=== PATIENT | female | born 1990 | race Hispanic/Latino ===

== ENCOUNTER 2018-03-24 21:15 | Emergency (ER) | payer MEDICAID, OTHER ==
[2018-03-24] MEDS ORDERED: ZOFRAN ODT PO ONE (21:31)
[2018-03-24] MEDS ORDERED: ZOFRAN ODT ONE (21:32)
--- NOTE | 2018-03-24 23:26 | Emergency Department Report ---
ED Abdominal Pain HPI - General Chief Complaint: Abdominal Pain Stated Complaint: CONSTIPATION Time Seen by Provider: 03/24/18 22:55 Source: patient Mode of arrival: Ambulatory Limitations: No Limitations - History of Present Illness MD Complaint: abdominal pain, other (constipation) Onset/Timin -: days(s) Location: diffuse Radiation: none Migration to: no migration Severity scale (0 -10): 2 (2/10) Quality: cramping, fullness Consistency: intermittent Improves With: nothing Worsens With: nothing Context: other (constipation) Associated Symptoms: nausea, constipation, dysuria. denies: vomiting, diarrhea, fever, chills, hematemesis, hematochezia, melena, hematuria, anorexia, syncope Treatments Prior to Arrival: other ([id number] medication for constipation without any relief) - Related Data LMP Date: 03/19/18 Home Medications Medication Instructions Recorded Confirmed Last Taken Motrin 600 MG tab 600 mg PO TID 01/18/15 09/12/15 1 Week Ago ~08/23/15 Ferrous Sulfate 2 tab PO QDAY 08/16/15 09/12/15 1 Week Ago ~09/05/15 Previous Rx's Medication Instructions Recorded Last Taken Type Pnv with Ca,No.72/Iron/FA 1 each PO QDAY #30 tablet 01/18/15 1 Day Ago Rx [ Plus Multivitamin Tab] ~08/29/15 Labetalol [Normodyne TAB] 100 mg PO BID #60 tablet 09/07/15 2 Days Ago Rx ~09/10/15 Metoprolol [Lopressor TAB] 25 mg PO Q8HR #90 tablet 09/13/15 Unknown Rx Bisacodyl [Dulcolax] 10 mg PO ONCE 1 Days #2 tab 03/25/18 Unknown Rx Magnesium Citrate [Citrate of 300 ml PO ONCE 1 Days #1 bottle 03/25/18 Unknown Rx Magnesia] Ondansetron [Zofran ODT TAB] 8 mg PO Q8HR PRN #12 tab.rapdis 03/25/18 Unknown Rx Sulfamethoxazole/Trimethoprim 1 each PO BID 7 Days #14 tablet 03/25/18 Unknown Rx [Bactrim DS TAB] Allergies Allergy/AdvReac Type Severity Reaction Status Date / Time amoxicillin [Amoxicillin] Allergy Itching Verified 01/18/15 01:11 metoclopramide HCl Allergy Itching Verified 01/18/15 01:11 [From Reglan] Penicillins Allergy Itching Verified 01/18/15 01:11 promethazine HCl Allergy Itching Verified 01/18/15 01:11 [From Phenergan] ED Review of Systems ROS: Stated complaint: CONSTIPATION Other details as noted in HPI Constitutional: denies: chills, fever ENT: denies: throat pain Respiratory: denies: cough, shortness of breath, wheezing Cardiovascular: denies: chest pain, palpitations, edema, syncope Gastrointestinal: nausea, constipation. denies: abdominal pain, vomiting, diarrhea, hematemesis, hematochezia Genitourinary: dysuria. denies: frequency, hematuria, discharge Musculoskeletal: denies: back pain, joint swelling, arthralgia, myalgia Skin: denies: rash Neurological: denies: headache, abnormal gait, vertigo ED Past Medical Hx - Past Medical History Previous Medical History?: Yes (history of) Hx Hypertension: Yes Hx Congestive Heart Failure: No Hx Diabetes: No Hx Deep Vein Thrombosis: No Hx Renal Disease: No Hx Sickle Cell Disease: No Hx Seizures: No Hx Asthma: Yes (occas inhaler use) Hx COPD: No Hx HIV: No - Surgical History Past Surgical History?: No - Family History Family history: hypertension - Social History Smoking Status: Never Smoker Substance Use Type: None - Medications Home Medications: Home Medications Medication Instructions Recorded Confirmed Last Taken Type Motrin 600 MG tab 600 mg PO TID 01/18/15 09/12/15 1 Week Ago History ~08/23/15 Pnv with Ca,No.72/Iron/FA 1 each PO QDAY #30 tablet 01/18/15 09/12/15 1 Day Ago Rx [ Plus Multivitamin Tab] ~08/29/15 Ferrous Sulfate 2 tab PO QDAY 08/16/15 09/12/15 1 Week Ago History ~09/05/15 Labetalol [Normodyne TAB] 100 mg PO BID #60 tablet 09/07/15 09/12/15 2 Days Ago Rx ~09/10/15 Metoprolol [Lopressor TAB] 25 mg PO Q8HR #90 tablet 09/13/15 Unknown Rx Bisacodyl [Dulcolax] 10 mg PO ONCE 1 Days #2 tab 03/25/18 Unknown Rx Magnesium Citrate [Citrate of 300 ml PO ONCE 1 Days #1 bottle 03/25/18 Unknown Rx Magnesia] Ondansetron [Zofran ODT TAB] 8 mg PO Q8HR PRN #12 tab.rapdis 03/25/18 Unknown Rx Sulfamethoxazole/Trimethoprim 1 each PO BID 7 Days #14 tablet 03/25/18 Unknown Rx [Bactrim DS TAB] ED Physical Exam - General Limitations: No Limitations (-year-old getting better. No deformity history blood with) General appearance: alert, in no apparent distress - Head Head exam: Present: atraumatic, normocephalic, normal inspection - Eye Eye exam: Present: normal appearance, PERRL, EOMI Pupils: Present: normal accommodation - ENT ENT exam: Present: normal exam, normal orophraynx, mucous membranes moist, TM's normal bilaterally, normal external ear exam - Neck Neck exam: Present: normal inspection, full ROM. Absent: tenderness, lymphadenopathy - Respiratory Respiratory exam: Present: normal lung sounds bilaterally. Absent: respiratory distress, chest wall tenderness - Cardiovascular Cardiovascular Exam: Present: regular rate, normal rhythm, normal heart sounds. Absent: systolic murmur - GI/Abdominal GI/Abdominal exam: Present: soft, normal bowel sounds. Absent: distended, tenderness, guarding, rebound, rigid, organomegaly, mass (O:) - Extremities Exam Extremities exam: Present: normal inspection, full ROM, normal capillary refill, other. Absent: tenderness, pedal edema, joint swelling, calf tenderness - Back Exam Back exam: Present: normal inspection, full ROM, other. Absent: tenderness, CVA tenderness (R), CVA tenderness (L) - Neurological Exam Neurological exam: Present: alert, oriented X3, normal gait - Psychiatric Psychiatric exam: Present: normal affect, normal mood - Skin Skin exam: Present: warm, dry, intact, normal color. Absent: rash ED Course Vital Signs 03/24/18 03/24/18 03/25/18 21:21 21:25 01:14 Temperature 99.3 F 99.3 F 97.5 F L Pulse Rate 94 H 94 H 76 Respiratory 18 18 16 Rate Blood Pressure 119/83 119/83 Blood Pressure 126/86 [Left] O2 Sat by Pulse 95 95 98 Oximetry - Reevaluation(s) Reevaluation #1: 03/25/18 00:54 Patient received zofran 4 mg ODT with relief of nausea ED Medical Decision Making - Lab Data Lab Results 03/24/18 03/24/18 Range/Units Unknown Unknown Urine Color Yolanda (Yellow) Urine Turbidity Slightly-cloudy (Clear) Urine pH 5.0 (5.0-7.0) Ur Specific Printer 1.028 (1.003-1.030) Urine Protein 30 mg/dl (Negative) mg/dL Urine Glucose (UA) Neg (Negative) mg/dL Urine Ketones Tr (Negative) mg/dL Urine Blood Neg (Negative) Urine Nitrite Neg (Negative) Urine Bilirubin Neg (Negative) Urine Urobilinogen 2.0 (<2.0) mg/dL Ur Leukocyte Esterase Mod (Negative) Urine WBC (Auto) 6.0 (0.0-6.0) /HPF Urine RBC (Auto) 4.0 (0.0-6.0) /HPF U Epithel Cells (Auto) 12.0 (0-13.0) /HPF Urine Bacteria (Auto) 1+ (Negative) /HPF Urine Mucus 3+ /HPF Urine HCG, Qual Negative (Negative) Urine CX sent - Radiology Data Radiology results: report reviewed X-ray two-view abdomen dictated by radiologist and report reviewed by myself. This shows moderate stool in the rectosigmoid colon with nonobstructive bowel gas pattern. I am unable to populate radiology result to this area due to malfunction of radiology system. Please see report section for details - Medical Decision Making This is a 27-year-old female here report that she is constipated although she had a bowel movement yesterday. She says she felt like she is needs to go some more. X-ray of the abdomen was done and showed moderate stool and colon. Patient also had urinalysis which is negative for and positive for urinary tract infection and urine cultures sent. I discussed diagnosis, x-ray results and laboratory results the patient's and she voiced understanding. Patient discharged home in stable condition with prescription for Bactrim DS, Dulcolax tablet and magnesium citrate liquid. I discussed with her she is to follow-up with her primary care physician and if her condition worsens to return to the emergency room. Her vital signs are stable and she is febrile and in no acute distress. - Differential Diagnosis bowel obstruction, UTI, constipation Critical care attestation.: If time is entered above; I have spent that time in minutes in the direct care of this critically ill patient, excluding procedure time. ED Disposition Clinical Impression: Dysuria Constipation Qualifiers: Constipation type: other constipation type Qualified Code(s): K59.09 - Other constipation UTI (urinary tract infection) Qualifiers: Urinary tract infection type: acute cystitis Hematuria presence: without hematuria Qualified Code(s): N30.00 - Acute cystitis without hematuria Disposition: TO HOME OR SELFCARE Is pt being admited?: No Does the pt Need Aspirin: No Condition: Stable Instructions: Constipation (ED), Urinary Tract Infection in Women (ED), High Fiber Diet (ED), Dysuria (ED) Additional Instructions: increase fiber in diet Take meds as prescribed see discharge instructions on constipation and UTI increase fluid intake to 2-3 litre of water daily if symptoms worsens follow up in ed otherwise go to PCP and gastroenterology for chronic constipation Prescriptions: Bisacodyl [Dulcolax] 10 mg PO ONCE 1 Days #2 tab Magnesium Citrate [Citrate of Magnesia] 300 ml PO ONCE 1 Days #1 bottle Ondansetron [Zofran ODT TAB] 8 mg PO Q8HR PRN #12 tab.rapdis PRN Reason: nausea/vomiting Sulfamethoxazole/Trimethoprim [Bactrim DS TAB] 1 each PO BID 7 Days #14 tablet Referrals: NELLY STROUD MD [Primary Care Provider] - 2-3 Days [facility] [Outside] - 2-3 Days [facility] [Provider Group] - 2-3 Days Forms: Work/School Release Form(ED)
--- NOTE | 2018-03-24 23:26 | Emergency Department Report ---
ED Allergic Reaction HPI - General Chief complaint: Abdominal Pain Stated complaint: CONSTIPATION Time Seen by Provider: 03/24/18 22:55 Source: patient Mode of arrival: Ambulatory Limitations: No Limitations - Related Data Home Medications Medication Instructions Recorded Confirmed Last Taken Motrin 600 MG tab 600 mg PO TID 01/18/15 09/12/15 1 Week Ago ~08/23/15 Ferrous Sulfate 2 tab PO QDAY 08/16/15 09/12/15 1 Week Ago ~09/05/15 Previous Rx's Medication Instructions Recorded Last Taken Type Pnv with Ca,No.72/Iron/FA 1 each PO QDAY #30 tablet 01/18/15 1 Day Ago Rx [ Plus Multivitamin Tab] ~08/29/15 Labetalol [Normodyne TAB] 100 mg PO BID #60 tablet 09/07/15 2 Days Ago Rx ~09/10/15 Metoprolol [Lopressor TAB] 25 mg PO Q8HR #90 tablet 09/13/15 Unknown Rx Allergies Allergy/AdvReac Type Severity Reaction Status Date / Time amoxicillin [Amoxicillin] Allergy Itching Verified 01/18/15 01:11 metoclopramide HCl Allergy Itching Verified 01/18/15 01:11 [From Reglan] Penicillins Allergy Itching Verified 01/18/15 01:11 promethazine HCl Allergy Itching Verified 01/18/15 01:11 [From Phenergan] ED Review of Systems ROS: Stated complaint: CONSTIPATION Other details as noted in HPI ED Past Medical Hx - Past Medical History Previous Medical History?: Yes Hx Hypertension: Yes Hx Congestive Heart Failure: No Hx Diabetes: No Hx Deep Vein Thrombosis: No Hx Renal Disease: No Hx Sickle Cell Disease: No Hx Seizures: No Hx Asthma: Yes (occas inhaler use) Hx COPD: No Hx HIV: No - Surgical History Past Surgical History?: No - Social History Smoking Status: Never Smoker - Medications Home Medications: Home Medications Medication Instructions Recorded Confirmed Last Taken Type Motrin 600 MG tab 600 mg PO TID 01/18/15 09/12/15 1 Week Ago History ~08/23/15 Pnv with Ca,No.72/Iron/FA 1 each PO QDAY #30 tablet 01/18/15 09/12/15 1 Day Ago Rx [ Plus Multivitamin Tab] ~08/29/15 Ferrous Sulfate 2 tab PO QDAY 08/16/15 09/12/15 1 Week Ago History ~09/05/15 Labetalol [Normodyne TAB] 100 mg PO BID #60 tablet 09/07/15 09/12/15 2 Days Ago Rx ~09/10/15 Metoprolol [Lopressor TAB] 25 mg PO Q8HR #90 tablet 09/13/15 Unknown Rx ED Physical Exam - General Limitations: No Limitations ED Course Vital Signs 03/24/18 03/24/18 21:21 21:25 Temperature 99.3 F 99.3 F Pulse Rate 94 H 94 H Respiratory 18 18 Rate Blood Pressure 119/83 119/83 O2 Sat by Pulse 95 95 Oximetry Critical care attestation.: If time is entered above; I have spent that time in minutes in the direct care of this critically ill patient, excluding procedure time. ED Disposition Condition: Stable Instructions: Abdominal Pain (ED) Referrals: NELLY STROUD MD [Primary Care Provider] - 3-5 Days
[2018-03-24 23:27] LABS: Bacteria,Urine 1+ /HPF (Negative); Bilirubin,Urine NEG (Negative); Blood,Urine NEG (Negative); Color,Urine Amber (Yellow); HCG Qualitative,Urine Negative (Negative); Mucus,Urine 3+ /HPF
--- NOTE | 2018-03-24 23:58 | XRay Report ---
FINAL REPORT EXAM: XR ABDOMEN 2V HISTORY: constipation COMPARISON: None available. FINDINGS: AP views of the abdomen obtained. Moderate stool in the rectosigmoid colon. Gas scattered within non dilated bowl loops. No gross pathologic calcifications. Bony structures are grossly intact. IMPRESSION: Moderate stool in the rectosigmoid colon. Nonobstructive bowel gas pattern.
[2018-03-25 14:44] VITALS: BP 126/86
== END 2018-03-25 01:14 | disposition home or self-care (01) ==
LOC: ED 21:15
DX: N30.00 Acute cystitis without hematuria (principal); K59.09 Other constipation; I10 Essential (primary) hypertension; J45.909 Unspecified asthma, uncomplicated; Z79.899 Other long term (current) drug therapy; Z88.1 Allergy status to other antibiotic agents; Z88.0 Allergy status to penicillin
CPT/HCPCS: 74019; 81001; 81025; 99283; Q0162